=== PATIENT | female | born 1940 | race Caucasian/White ===

== ENCOUNTER → 2016-09-07 | Outpatient (CLI) | payer MEDICARE ==
[~2016-09-07] MED LIST: CALC-140 PO; CYCL1DRO2 OP; ESTR0.62; FURO-125 PO; HYDR-3754 PO; LEVO88TA28 PO; LVCR25100 PO; MULT1CAP27; NF-FLON16G; OMEP20CA6 PO; OMG1KC PO; POTA10TA36 PO; PRAM1TAB2 PO; PROPIONATE; RASA1TAB PO; RISE35TA PO; SELE5CAP7 PO
--- NOTE | 2016-09-07 18:22 | Diagnostic Imaging Report ---
INDICATION: Left knee surgery AP and lateral views of the left knee are obtained. Comparison is made to study of 10/22/2015. There are postoperative changes of total left knee arthroplasty. Prosthetic components are well aligned. There is no evidence of fracture or malalignment. No significant joint effusion is identified. IMPRESSION: Total left knee arthroplasty without acute abnormality identified. Dictated by: Dictated on workstation # [id number]
== END ==
LOC: RAD 15:38
PROVIDERS: ATTEND Orthopaedic Surgery
DX: Z96.652 Presence of left artificial knee joint (principal)
CPT/HCPCS: 73560

== ENCOUNTER → 2016-09-11 | Outpatient (CLI) | payer MEDICARE ==
--- NOTE | 2016-09-11 12:00 | Diagnostic Imaging Report ---
INDICATION: Diagnostic left breast mammograms to evaluate calcifications within the left breast. COMPARISON: August 25, 2016, September 20, 2014, and August 03, 2013. The current study was also evaluated with a Computer Aided Detection (CAD) system. FINDINGS: True lateral and spot magnification digital mammographic views of the left breast were obtained. The breast tissue is heterogeneously dense, which may lower the sensitivity of mammography. The previously questioned focal cluster of microcalcifications within the posterior depth of the upper-inner quadrant of the left breast is again identified. This cluster is in a slight linear distribution. These microcalcifications are coarse and heterogeneous. These microcalcifications have increased since prior imaging. These microcalcifications are unique compared to other calcifications within the left breast. No additional suspicious mass, microcalcifications, or architectural distortion within the left breast. IMPRESSION: Increasing coarse and heterogeneous cluster of microcalcifications within the posterior depth of the upper-inner quadrant of the left breast is suspicious of malignancy. Therefore, stereotactic-guided biopsy is recommended. ACR BI-RADS Category 4: Suspicious abnormality, stereotactic guided biopsy is recommended. Result letter will be mailed to the patient. Findings discussed with patient at the time of the examination. NOTE: Keep in mind that about 10% of breast cancers will not be identified on mammography. Further evaluation of a palpable mass not seen on mammography should be based on clinical grounds. Report was called and faxed to Mariela Bush APRN, @ 11:54 AM/carlos. Dictated by: Dictated on workstation # [id number]
== END ==
LOC: RAD 08:18
PROVIDERS: ATTEND Nurse Practitioner Family
DX: R92.1 Mammographic calcification found on diagnostic imaging of breast (principal)

== ENCOUNTER 2016-09-28 08:45 | Day surgery (SDC) | payer MEDICARE ==
[~2016-09-28] VITALS: Ht 152.4 cm; Wt 80.0 kg
[~2016-09-28 08:45] MED LIST changes: -CALC-140 PO; -CYCL1DRO2 OP; -ESTR0.62; -FURO-125 PO; -HYDR-3754 PO; +LACTATED RINGERS 1,000 ML IV SCH; -LEVO88TA28 PO; +LIDOCAINE 2% (XYLOCAINE) 20 ML VIAL INJ ONE; +LIDOCAINE/EPINEPHRINE 2% 1:100,000 (XYLOCAINE) 30 ML VIAL INJ ONE; -LVCR25100 PO; -MULT1CAP27; -NF-FLON16G; -OMEP20CA6 PO; -OMG1KC PO; -POTA10TA36 PO; -PRAM1TAB2 PO; -PROPIONATE; -RASA1TAB PO; -RISE35TA PO; -SELE5CAP7 PO; +SODIUM CHLORIDE FLUSH 3 ML SYR IV PRN
[2016-09-28 09:02] VITALS: BP 122/65
[2016-09-28 10:28] VITALS: BP 124/66
== END 2016-09-28 10:30 | disposition home or self-care (01) ==
LOC: ASC 08:45
PROVIDERS: ATTEND Surgery
DX: N60.42 Mammary duct ectasia of left breast (principal); D24.2 Benign neoplasm of left breast; R92.0 Mammographic microcalcification found on diagnostic imaging of breast
CPT/HCPCS: 19081; 88305; A4648

== ENCOUNTER → 2017-01-11 | Outpatient (REF) | payer MEDICARE ==
[~2017-01-11] MED LIST changes: +CALC-140 PO; +CYCL1DRO2 OP; +ESTR0.62; +FURO-125 PO; +HYDR-3754 PO; -LACTATED RINGERS 1,000 ML IV SCH; +LEVO88TA28 PO; -LIDOCAINE 2% (XYLOCAINE) 20 ML VIAL INJ ONE; -LIDOCAINE/EPINEPHRINE 2% 1:100,000 (XYLOCAINE) 30 ML VIAL INJ ONE; +LVCR25100 PO; +MULT1CAP27; +NF-FLON16G; +OMEP20CA6 PO; +OMG1KC PO; +POTA10TA36 PO; +PRAM1TAB2 PO; +PROPIONATE; +RASA1TAB PO; +RISE35TA PO; +SELE5CAP7 PO; -SODIUM CHLORIDE FLUSH 3 ML SYR IV PRN
[2017-01-11 11:52] LABS: ANION GAP 12.2 MEQ/L (3-15)
== END ==
LOC: LAB 11:23
PROVIDERS: ATTEND Family Medicine
DX: I89.0 Lymphedema, not elsewhere classified (principal)
CPT/HCPCS: 80048